=== PATIENT | female | born 1955 | race Caucasian/White ===

== ENCOUNTER 2017-09-11 21:44 | Observation (INO) | payer SELFPAY ==
[~2017-09-11] VITALS: Ht 177.8 cm; Wt 56.0 kg
[~2017-09-11 21:44] MED LIST: IOHEXOL 350 MG/ML 10 ML VIAL (for RAD DIAG) IVCONTRAST ONE; Z.0.NO CURRENT MEDS
[2017-09-11 22:03] VITALS: BP 128/94; PULSE 91; RESP 16; TEMP 97.6; O2SAT 98
[2017-09-11] MEDS ORDERED: KETOROLAC TROMETHAMINE 30 MG/ML (IVP) VIAL IV PUSH ONE (22:30)
[2017-09-11 23:51] LABS: BASOPHIL # 0.1 TH/MM3 (0-0.2); BASOPHIL % 0.6 % (0.0-2.0); EOSINOPHIL # 0.2 TH/MM3 (0-0.4); EOSINOPHIL % 1.4 % (0.0-4.0); HEMATOCRIT 27.5 % (35.0-46.0); HEMOGLOBIN 9.8 GM/DL (11.6-15.3); LYMPH % 28.9 % (9.0-44.0); LYMPHOCYTE # 3.7 TH/MM3 (1.0-4.8); MEAN CELL VOLUME 87.2 FL (80.0-100.0); MEAN CORPUSCULAR HEMOGLOBIN 31.1 PG (27.0-34.0); MEAN CORPUSCULAR HGB CONC 35.6 % (32.0-36.0); MEAN PLATELET VOLUME 6.9 FL (7.0-11.0); MONO % 6.3 % (0.0-8.0); MONOCYTE # 0.8 TH/MM3 (0-0.9); NEUT % 62.8 % (16.0-70.0); PLATELET COUNT 572 TH/MM3 (150-450); RED BLOOD COUNT 3.16 MIL/MM3 (4.00-5.30); RED CELL DISTRIBUTION WIDTH 16.5 % (11.6-17.2); WHITE BLOOD COUNT 12.7 TH/MM3 (4.0-11.0)
[2017-09-11 23:58] LABS: ALT (GPT) 11 U/L (10-53); AST (GOT) 15 U/L (15-37); BICARBONATE 16.4 MEQ/L (21.0-32.0); BLOOD UREA NITROGEN 34 MG/DL (7-18); CALCIUM 7.9 MG/DL (8.5-10.1); CHLORIDE 104 MEQ/L (98-107); CREATININE 1.26 MG/DL (0.50-1.00); GLOMERULAR FILTRATION RATE 43 ML/MIN (>89); GLUCOSE,RANDOM 79 MG/DL (74-106); SODIUM (NA) 135 MEQ/L (136-145)
[2017-09-12] VITALS (7 sets, daily range): BP systolic 126–182; BP diastolic 62–82; PULSE 85–100; RESP 16–24; TEMP 96.3–98.4; O2SAT 96–100
--- NOTE | 2017-09-12 00:04 | RADRPT ---
EXAM DATE/TIME: 09/11/2017 23:43 [facility] COMPARISON: No previous studies available for comparison. INDICATIONS : Cough and chest pain. MEDICAL HISTORY : None. SURGICAL HISTORY : Appendectomy. section. ENCOUNTER: Initial ACUITY: 2 weeks PAIN SCORE: 5/10 LOCATION: Left chest FINDINGS: PA and lateral views of the chest demonstrate subsegmental airspace disease on the right. Differentia l diagnosis includes bronchopneumonia. Left lung relatively clear. Heart size normal. CONCLUSION: 1. Subsegmental airspace disease in the right lung near the base. Differential diagnosis includes pne umonia and aspiration. Milan Trotter MD on September 12, 2017 at 0:01 Board Certified Radiologist. This report was verified electronically.
[2017-09-12 00:08] LABS: ALKALINE PHOSPHATASE 137 U/L (45-117); TOTAL BILIRUBIN ADULT 0.1 MG/DL (0.2-1.0); TOTAL PROTEIN 7.4 GM/DL (6.4-8.2); TROPONIN I LESS THAN 0.02 NG/ML (0.02-0.05)
[2017-09-12 00:36] LABS: BANDS 2 % (0-6); LYMPHOCYTES 28 % (9-44); METAMYELOCYTES 1 % (0-1); MONOCYTES 5 % (0-8); MYELOCYTES 4 % (0-0); NEUTROPHIL # MANUAL DIFF 8.4 TH/MM3 (1.8-7.7); POLYS (SEG NEUTROPHILS) 59 % (16-70); TOXIC GRANULATION 2+ (NORMAL)
[2017-09-12] MEDS ORDERED: SODIUM CHLOR 0.9% 1000 ML INJ 1,000 ML IV ONE ×2 (00:45)
[2017-09-12] MEDS ORDERED: LEVOFLOXACIN 750 MG PREMIX INJ 150 ML IV ONE (01:00)
[2017-09-12] MEDS ORDERED: IOHEXOL 350 MG/ML 10 ML VIAL (for RAD DIAG) IVCONTRAST ONE (01:28)
--- NOTE | 2017-09-12 01:48 | RADRPT ---
EXAM DATE/TIME: 09/12/2017 01:19 [facility] COMPARISON: No previous studies available for comparison. INDICATIONS : Abdominal pain. Evaluate pancreatitis. IV CONTRAST: 100 cc Omnipaque 350 (iohexol) IV ORAL CONTRAST: No oral contrast ingested. RADIATION DOSE: 6.64 CTDIvol (mGy) MEDICAL HISTORY : None SURGICAL HISTORY : Appendectomy. ENCOUNTER: Initial ACUITY: 1 day PAIN SCALE: 1/10 LOCATION: abdomen TECHNIQUE: Volumetric scanning of the abdomen and pelvis was performed. Using automated exposure control and ad justment of the mA and/or kV according to patient size, radiation dose was kept as low as reasonably achievable to obtain optimal diagnostic quality images. DICOM format image data is available electro nically for review and comparison. FINDINGS: There is a single airspace disease in lateral segment of the right middle lobe which has the appearan ce of most likely atelectasis. The liver is enlarged to 22 cm in length with mild fatty infiltration. Small calcified gallstone. Spl een unremarkable. Enlarged left adrenal gland, probably adenomatous. Right adrenal unremarkable. A si gnificant abnormality in the kidneys or pancreas. Specifically no evidence for pancreatitis. There is mural thickening of the distal left sigmoid colon with extensive diverticular disease. CONCLUSION: 1. No CT evidence for pancreatitis. Small calcified gallstone in the gallbladder. 2. Subsegmental atelectasis right middle lobe. 3. Mural thickening of the distal sigmoid colon, probably related to severe diverticulosis. 4. Hepatomegaly. Milan Trotter MD on September 12, 2017 at 1:37 Board Certified Radiologist. This report was verified electronically.
[2017-09-12] MEDS ORDERED: SODIUM CHLOR 0.9% 1000 ML INJ 1,000 ML IV SCH (02:42)
[2017-09-12] MEDS ORDERED: BISACODYL 10 MG SUPP RECTAL PRN (02:45)
[2017-09-12] MEDS ORDERED: SENNOSIDES 8.6 MG TAB PO PRN (02:45)
[2017-09-12] MEDS ORDERED: LORazepam 2 MG/ML VIAL IV PUSH PRN ×4 (02:45)
[2017-09-12] MEDS ORDERED: MAGNESIUM HYDROXIDE SUSP 30 ML CUP PO PRN (02:45)
[2017-09-12] MEDS ORDERED: HALOPERIDOL LACTATE 5 MG/ML AMP IM PRN (02:45)
[2017-09-12] MEDS ORDERED: METOCLOPRAMIDE HCL 10 MG/2 ML VIAL IV PUSH PRN (02:45)
[2017-09-12] MEDS ORDERED: MORPHINE SULFATE 2 MG/ML SYRINGE IV PUSH PRN (02:45)
[2017-09-12] MEDS ORDERED: LORazepam 1 MG TAB PO PRN (02:45)
[2017-09-12] MEDS ORDERED: PANTOPRAZOLE SODIUM 40 MG VIAL IV PUSH ONE (02:45)
[2017-09-12] MEDS ORDERED: FLUMAZENIL 0.5 MG/5 ML VIAL IV PUSH PRN (02:45)
[2017-09-12] MEDS ORDERED: LACTULOSE SYRUP 20 GM/30 ML CUP PO PRN (02:45)
[2017-09-12] MEDS ORDERED: SODIUM CHLORIDE 0.9% FLUSH 10 ML FLUSH IV FLUSH PRN (02:45)
[2017-09-12] MEDS ORDERED: ACETAMINOPHEN 325 MG TAB PO PRN (02:45)
[2017-09-12] MEDS ORDERED: LORazepam 2 MG TAB PO PRN (02:45)
[2017-09-12] MEDS ORDERED: RESP: ALBUTEROL 2.5 MG/IPRATROPIUM 0.5 MG NEB (PRN) NEB (03:00)
[2017-09-12] MEDS: THIAMINE HCL 100 MG TAB PO SCH ×2 (03:08→08:55)
--- NOTE | 2017-09-12 03:25 | HHI.HP ---
[facility] Service [facility] Primary Care Physician No Primary Care Physician Admission Diagnosis Diagnoses: (1) Pancreatitis Diagnosis: Principal (2) PNA (pneumonia) Diagnosis: Principal (3) PATT (acute kidney injury) Diagnosis: Principal (4) Alcohol abuse Diagnosis: Principal Travel History International Travel<30 Days: No Contact w/Intl Traveler <30 Da: No Traveled to Known Affected Are: No History of Present Illness This is a 61-year-old female with a PMH of Tobacco Abuse and Alcohol Use who presented to ER with complaints of dizziness in addition to abdominal pain, nausea and vomiting x1 wk. States symptoms have been getting progressively worse. Notes she usually drinks a 6 pack of beer every other day, but has been drinking less due to nausea/vomiting. Denies withdrawal. No fever, chills, no diarrhea. On arrival, BP 128/94, HR 91, O2 sat 98% on RA, Afebrile. WBC 12.7. Hemoglobin 9.8, previously 14.2 on 10/02/2008. Creatinine 1.26, previously 0.83 on 10/02/2008. Troponin negative. Lipase 1081. CXR with subsegmental airspace disease right lung near the base. CT Abdomen/Pelvis no evidence for pancreatitis, small calcified gallstone in the gallbladder, subsegmental atelectasis right middle lobe, diverticulosis. S/p Levaquin in ER. Review of Systems Except as stated in HPI: all other systems reviewed are Neg ROS: 14 point review of systems otherwise negative. Past Family Social History Past Medical History PMH: Tobacco Abuse and Alcohol Use Past Surgical History PAST SURGICAL HISTORY: Back Surgery Allergies: Coded Allergies: No Known Allergies (Verified Allergy, Mild, 10/28/07) Family History PAST FAMILY HISTORY: Reviewed. No h/o DM or CAD Social History PAST SOCIAL HISTORY: Positive for alcohol and tobacco. Negative for drugs. Physical Exam Vital Signs Vital Signs Date Time Temp Pulse Resp B/P (MAP) Pulse Ox O2 Delivery O2 Flow Rate FiO2 09/11/17 22:03 97.6 91 16 128/94 (105) 98 Physical Exam PE: GENERAL: Middle-aged white female in no acute distress. Smells of tobacco HEENT: PERRLA, EOMI. No scleral icterus or conjunctival pallor. No lid lag or facial droop. CARDIOVASCULAR: Regular rate and rhythm. No obvious murmurs to auscultation. No chest tenderness to palpation. RESPIRATORY: No obvious rhonchi or wheezing. Clear to auscultation. Breath sounds equal bilaterally. GASTROINTESTINAL: Abdomen soft, mild tenderness to palpation, nondistended. BS normal. MUSCULOSKELETAL: Extremities without clubbing, cyanosis, or edema. No obvious deformities. NEUROLOGICAL: Awake, alert and oriented x4. No focal neurologic deficits. Moving both upper and lower extremities spontaneously. Laboratory Laboratory Tests Test 09/11/17 22:00 White Blood Count 12.7 Red Blood Count 3.16 Hemoglobin 9.8 Hematocrit 27.5 Mean Corpuscular Volume 87.2 Mean Corpuscular Hemoglobin 31.1 Mean Corpuscular Hemoglobin Concent 35.6 Red Cell Distribution Width 16.5 Platelet Count 572 Mean Platelet Volume 6.9 Neutrophils (%) (Auto) 62.8 Lymphocytes (%) (Auto) 28.9 Monocytes (%) (Auto) 6.3 Eosinophils (%) (Auto) 1.4 Basophils (%) (Auto) 0.6 Neutrophils # (Auto) 8.0 Lymphocytes # (Auto) 3.7 Monocytes # (Auto) 0.8 Eosinophils # (Auto) 0.2 Basophils # (Auto) 0.1 CBC Comment AUTO DIFF Differential Total Cells Counted 100 Neutrophils % (Manual) 59 Band Neutrophils % 2 Lymphocytes % 28 Monocytes % 5 Eosinophils % 1 Neutrophils # (Manual) 8.4 Metamyelocytes 1 Myelocytes 4 Differential Comment FINAL DIFF MANUAL Toxic Granulation 2+ Platelet Estimate HIGH Platelet Morphology Comment NORMAL Blood Urea Nitrogen 34 Creatinine 1.26 Random Glucose 79 Total Protein 7.4 Albumin 2.0 Calcium Level 7.9 Alkaline Phosphatase 137 Aspartate Amino Transf (AST/SGOT) 15 Alanine Aminotransferase (ALT/SGPT) 11 Total Bilirubin 0.1 Sodium Level 135 Potassium Level 4.4 Chloride Level 104 Carbon Dioxide Level 16.4 Anion Gap 15 Estimat Glomerular Filtration Rate 43 Troponin I LESS THAN 0.02 Lipase 1081 Thyroid Stimulating Hormone 3rd Gen 2.230 Date/Time Source Procedure Growth Status 09/11/17 22:00 Nasal Aspirate Influenza Types A,B Antigen (CORDELIA) - Final NEGATIVE FOR FLU A AND B ANTIGEN.... Complete Result Diagram: 09/11/17219909/11/172199 Caprini VTE Risk Assessment Caprini VTE Risk Assessment: No/Low Risk (score <= 1) Caprini Risk Assessment Model Point Value = 1 Point Value = 2 Point Value = 3 Point Value = 5 Age 41-60 Minor surgery BMI > 25 kg/m2 Swollen legs Varicose veins or History of unexplained or recurrent spontaneous Oral contraceptives or hormone replacement Sepsis (< 1 month) Serious lung disease, including pneumonia (< 1 month) Abnormal pulmonary function Acute myocardial infarction Congestive heart failure (< 1 month) History of inflammatory bowel disease Medical patient at bed rest Age 61-74 Arthroscopic surgery Major open surgery (> 45 min) Laparoscopic surgery (> 45 min) Malignancy Confined to bed (> 72 hours) Immobilizing plaster cast Central venous access Age >= 75 History of VTE Family history of VTE Factor V Leiden Prothrombin [id number] Lupus anticoagulant Anticardiolipin antibodies Elevated serum homocysteine Heparin-induced thrombocytopenia Other congenital or acquired thrombophilia Stroke (< 1 month) Elective arthroplasty Hip, pelvis, or leg fracture Acute spinal cord injury (< 1 month) Prophylaxis Regimen Total Risk Factor Score Risk Level Prophylaxis Regimen 0-1 Low Early ambulation 2 Moderate Order ONE of the following: *Sequential Compression Device (SCD) *Heparin 5000 units SQ BID 3-4 Higher Order ONE of the following medications: *Heparin 5000 units SQ TID *Enoxaparin/Lovenox 40 mg SQ daily (WT < 150 kg, CrCl > 30 mL/min) *Enoxaparin/Lovenox 30 mg SQ daily (WT < 150 kg, CrCl > 10-29 mL/min) *Enoxaparin/Lovenox 30 mg SQ BID (WT < 150 kg, CrCl > 30 mL/min) AND/OR *Sequential Compression Device (SCD) 5 or more Highest Order ONE of the following medications: *Heparin 5000 units SQ TID (Preferred with Epidurals) *Enoxaparin/Lovenox 40 mg SQ daily (WT < 150 kg, CrCl > 30 mL/min) *Enoxaparin/Lovenox 30 mg SQ daily (WT < 150 kg, CrCl > 10-29 mL/min) *Enoxaparin/Lovenox 30 mg SQ BID (WT < 150 kg, CrCl > 30 mL/min) AND *Sequential Compression Device (SCD) Assessment and Plan Problem List: (1) Pancreatitis ICD Code: K85.90 - Acute pancreatitis without necrosis or infection, unspecified (2) PNA (pneumonia) ICD Code: J18.9 - Pneumonia, unspecified organism (3) PATT (acute kidney injury) ICD Code: N17.9 - Acute kidney failure, unspecified (4) Alcohol abuse ICD Code: F10.10 - Alcohol abuse, uncomplicated Assessment and Plan A/P: 1. Pancreatitis: acute onset abdominal pain, nausea/vomiting x1 wk. Lipase 1081, CT Abd/Pelvis w/ no evidence of pancreatitis, small calcified stone in gallbladder, images reviewed by me. Admit for Observation, NPO, IVF, diet as tolerated, analgesics/antiemetics, Protonix IV, repeat Lipase in am. 2. PNA: CXR w/ RLL infiltrate, CT Abd/Pelvis w/ subsegmental atelectasis RML, images reviewed by me, s/p Levaquin in ER, continue w/ IV Abx, DuoNeb prn. 3. PATT: Creatinine 1.26, previously 0.83 on 10/02/08, check U/a, IVF for hydration, repeat labs in am 4. Alcohol Use/Abuse: Drinks 6 beers every other day, unable to drink lately due to symptoms, CIWA, Seizure Precautions, MVT/Thiamine/Folate replacement. 5. DVT Prophylaxis: SCD/Teds 6. Social work for d/c planning as needed. 7. Case discussed w/ ER physician at length, labs/records/imaging reviewed by me. Blank Frias MD September 12, 2017 03:25
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
[2017-09-12 08:34] LABS: AUTOMATED NEUTROPHIL # 6.9 TH/MM3 (1.8-7.7); BASOPHIL # 0.1 TH/MM3 (0-0.2); BASOPHIL % 0.8 % (0.0-2.0); EOSINOPHIL # 0.1 TH/MM3 (0-0.4); EOSINOPHIL % 1.3 % (0.0-4.0); HEMATOCRIT 28.2 % (35.0-46.0); HEMOGLOBIN 9.5 GM/DL (11.6-15.3); LYMPHOCYTE # 2.5 TH/MM3 (1.0-4.8); MEAN CELL VOLUME 87.5 FL (80.0-100.0); MEAN CORPUSCULAR HEMOGLOBIN 29.6 PG (27.0-34.0); MEAN CORPUSCULAR HGB CONC 33.8 % (32.0-36.0); MEAN PLATELET VOLUME 6.6 FL (7.0-11.0); MONO % 6.9 % (0.0-8.0); MONOCYTE # 0.7 TH/MM3 (0-0.9); PLATELET COUNT 618 TH/MM3 (150-450); RED BLOOD COUNT 3.22 MIL/MM3 (4.00-5.30); RED CELL DISTRIBUTION WIDTH 16.8 % (11.6-17.2); WHITE BLOOD COUNT 10.3 TH/MM3 (4.0-11.0)
[2017-09-12 08:54] LABS: ALBUMIN 1.8 GM/DL (3.4-5.0); ALKALINE PHOSPHATASE 133 U/L (45-117); ALT (GPT) 11 U/L (10-53); AST (GOT) 14 U/L (15-37); BICARBONATE 16.7 MEQ/L (21.0-32.0); BLOOD UREA NITROGEN 31 MG/DL (7-18); CALCIUM 8.1 MG/DL (8.5-10.1); CHLORIDE 112 MEQ/L (98-107); CREATININE 1.19 MG/DL (0.50-1.00); GLOMERULAR FILTRATION RATE 46 ML/MIN (>89); GLUCOSE,RANDOM 91 MG/DL (74-106); SODIUM (NA) 140 MEQ/L (136-145); TOTAL BILIRUBIN ADULT 0.2 MG/DL (0.2-1.0); TOTAL PROTEIN 6.9 GM/DL (6.4-8.2)
[2017-09-12] MEDS: FOLIC ACID 1 MG TAB PO SCH (08:55)
[2017-09-12] MEDS: DOCUSATE SODIUM 50 MG/SENNA 8.6 MG TAB PO SCH ×2 (08:55→20:51)
[2017-09-12] MEDS: MULTIVITAMINS/MINERALS THERAPEUTIC TAB PO SCH (08:55)
[2017-09-12] MEDS: SODIUM CHLORIDE 0.9% FLUSH 10 ML FLUSH IV FLUSH SCH ×2 (08:55→20:52)
[2017-09-12 09:55] LABS: BANDS 2 % (0-6); LYMPHOCYTES 19 % (9-44); METAMYELOCYTES 2 % (0-1); MONOCYTES 7 % (0-8); MYELOCYTES 3 % (0-0); NEUTROPHIL # MANUAL DIFF 7.3 TH/MM3 (1.8-7.7); POLYS (SEG NEUTROPHILS) 64 % (16-70)
[2017-09-12 09:56] LABS: TOXIC GRANULATION 1+ (NORMAL)
[2017-09-12 10:23] LABS: URINE COLOR STRAW (YELLW/STRAW)
[2017-09-12 10:24] LABS: BILIRUBIN, URINE NEGATIVE (NEG); BLOOD, URINE MOD (NEG); GLUCOSE,URINE NEG (NEG); KETONE, URINE NEG (NEG); NITRITE,URINE NEG (NEG); URINE LEUKOCYTE ESTERASE NEGATIVE (NEG)
[2017-09-12 10:25] LABS: SQUAMOUS EPITHELIAL CELL URINE <1 /hpf (0-5)
--- NOTE | 2017-09-12 13:46 | EKG ---
Date Performed: 09/11/2017 Time Performed: 21:57:32 PTAGE: 61 years EKG: Sinus rhythm ARM LEADS REVERSED ATYPICAL ECG PREVIOUS TRACING : 10/02/2008 14.43 Since the previous tracing, no significant change noted DOCTOR: Manjeet Michael Interpretating Date/Time 09/12/2017 13:43:32
[2017-09-12] MEDS ORDERED: cloNIDine HCL 0.1 MG TAB PO ONE (20:00)
[2017-09-12] MEDS ORDERED: MORPHINE SULFATE 4 MG/ML INJ IV PRN (20:45)
[2017-09-12] MEDS: cefTRIAXone INJ 1,000 MG in SODIUM CHLORIDE 0.9% INJ 100 ML IV SCH (20:51)
[2017-09-12] MEDS: AZITHROMYCIN INJ 500 MG in SODIUM CHLOR 0.9% 250 ML INJ 250 ML IV SCH (22:38)
[2017-09-12] MEDS ORDERED: cefTRIAXone INJ 1,000 MG in SODIUM CHLORIDE 0.9% INJ 100 ML IV SCH (23:00)
[2017-09-13 03:44] VITALS: BP 154/70; PULSE 84; RESP 17; TEMP 98; O2SAT 96
[2017-09-13 07:33] VITALS: BP 153/76; PULSE 82; RESP 20; TEMP 96.3; O2SAT 98
[2017-09-13] MEDS: DOCUSATE SODIUM 50 MG/SENNA 8.6 MG TAB PO SCH ×2 (09:00→21:00)
[2017-09-13] MEDS: FOLIC ACID 1 MG TAB PO SCH (09:07)
[2017-09-13] MEDS: SODIUM CHLORIDE 0.9% FLUSH 10 ML FLUSH IV FLUSH SCH ×2 (09:07→21:35)
[2017-09-13] MEDS: THIAMINE HCL 100 MG TAB PO SCH (09:07)
[2017-09-13] MEDS: MULTIVITAMINS/MINERALS THERAPEUTIC TAB PO SCH (09:07)
[2017-09-13 09:24] LABS: ALBUMIN 1.9 GM/DL (3.4-5.0); AST (GOT) 11 U/L (15-37); BLOOD UREA NITROGEN 26 MG/DL (7-18); CALCIUM 8.5 MG/DL (8.5-10.1); CHLORIDE 112 MEQ/L (98-107); CREATININE 1.06 MG/DL (0.50-1.00); GLOMERULAR FILTRATION RATE 53 ML/MIN (>89); GLUCOSE,RANDOM 93 MG/DL (74-106); SODIUM (NA) 140 MEQ/L (136-145)
[2017-09-13 09:25] LABS: ALT (GPT) 11 U/L (10-53)
[2017-09-13 09:27] LABS: ALKALINE PHOSPHATASE 131 U/L (45-117); TOTAL BILIRUBIN ADULT 0.2 MG/DL (0.2-1.0); TOTAL PROTEIN 6.8 GM/DL (6.4-8.2)
[2017-09-13 09:34] LABS: HEMATOCRIT 29.5 % (35.0-46.0); HEMOGLOBIN 9.9 GM/DL (11.6-15.3); MEAN CELL VOLUME 90.1 FL (80.0-100.0); MEAN CORPUSCULAR HEMOGLOBIN 30.2 PG (27.0-34.0); MEAN CORPUSCULAR HGB CONC 33.5 % (32.0-36.0); MEAN PLATELET VOLUME 6.7 FL (7.0-11.0); PLATELET COUNT 637 TH/MM3 (150-450); RED BLOOD COUNT 3.28 MIL/MM3 (4.00-5.30); RED CELL DISTRIBUTION WIDTH 16.8 % (11.6-17.2)
[2017-09-13] MEDS ORDERED: ACETAMINOPHEN/HYDROcodone 325 MG/7.5 MG TAB PO ONE (10:30)
[2017-09-13 11:05] LABS: BANDS 2 % (0-6); LYMPHOCYTES 20 % (9-44); MONOCYTES 10 % (0-8); MYELOCYTES 3 % (0-0); NEUTROPHIL # MANUAL DIFF 5.6 TH/MM3 (1.8-7.7); POLYS (SEG NEUTROPHILS) 65 % (16-70)
[2017-09-13 11:06] LABS: TOXIC GRANULATION 1+ (NORMAL)
[2017-09-13 11:12] VITALS: BP 151/72; PULSE 76; RESP 20; TEMP 97.1; O2SAT 100
[2017-09-13] MEDS ORDERED: LEVO750T3 PO (11:30)
[2017-09-13] MEDS ORDERED: LACTTAB8 PO (11:30)
[2017-09-13] MEDS ORDERED: NORC5TAB PO (11:30)
--- NOTE | 2017-09-13 14:36 | HHI.PR ---
Subjective Remarks Pain is significant this morning, not able to discharge without pain treatments yet. Respiratory status has improved. Pancreatic enzymes are improving. She still has significant pleuritic chest pain with inspiration. Objective Vital Signs Date Time Temp Pulse Resp B/P (MAP) Pulse Ox O2 Delivery O2 Flow Rate FiO2 09/13/17 12:13 18 09/13/17 11:12 97.1 76 20 151/72 (98) 100 09/13/17 07:33 96.3 82 20 153/76 (101) 98 09/13/17 03:44 98.0 84 17 154/70 (98) 96 09/12/17 23:18 98.2 86 17 131/62 (85) 97 09/12/17 19:47 98.4 96 18 180/82 (114) 100 09/12/17 15:23 98.2 85 16 178/79 (112) 97 I/O 09/12/17 09/12/17 09/12/17 09/13/17 09/13/17 09/13/17 07:00 15:00 23:00 07:00 15:00 23:00 Intake Total 480 ml 1080 ml Output Total 450 ml Balance -450 ml 480 ml 1080 ml Intake Oral 480 ml 1080 ml Output Urine Total 450 ml # Voids 2 # Bowel Movements 3 Result Diagram: 09/13/17 0652 09/13/17 0652 Objective Remarks GENERAL: NAD, A&Ox3 HEAD: Normocephalic. NECK: Supple, trachea midline. No lymphadenopathy. EYES: No scleral icterus. No injection or drainage. CARDIOVASCULAR: Regular rate and rhythm without murmurs, gallops, or rubs. RESPIRATORY: Breath sounds equal bilaterally. No accessory muscle use. Crackles bilaterally. GASTROINTESTINAL: Abdomen soft, non-tender, nondistended. MUSCULOSKELETAL: No cyanosis, or edema. SKIN: Warm and dry. NEURO: No focal neurological deficitis. A/P Problem List: (1) PNA (pneumonia) ICD Code: J18.9 - Pneumonia, unspecified organism (2) Pancreatitis ICD Code: K85.90 - Acute pancreatitis without necrosis or infection, unspecified (3) PATT (acute kidney injury) ICD Code: N17.9 - Acute kidney failure, unspecified Assessment and Plan 61-year-old female admitted secondary to pneumonia and pancreatitis Acute pancreatitis Improved May be related to pneumonia Continue to monitor lipase Right lower lobe pneumonia Continue antibiotics Continue to follow for clinical improvements Oxygen as needed Pain treatments as needed Acute kidney injury Resolved DVT prophylaxis SCDs Delonte Gutierrez MD September 13, 2017 14:36
--- NOTE | 2017-09-13 15:38 | HHI.PR ---
Subjective Remarks F/u pancreatitis. NOT SEEN Objective Vitals Vital Signs Date Time Temp Pulse Resp B/P (MAP) Pulse Ox O2 Delivery O2 Flow Rate FiO2 09/13/17 12:13 18 09/13/17 11:12 97.1 76 20 151/72 (98) 100 09/13/17 07:33 96.3 82 20 153/76 (101) 98 09/13/17 03:44 98.0 84 17 154/70 (98) 96 09/12/17 23:18 98.2 86 17 131/62 (85) 97 09/12/17 19:47 98.4 96 18 180/82 (114) 100 I/O 09/12/17 09/12/17 09/12/17 09/13/17 09/13/17 09/13/17 07:00 15:00 23:00 07:00 15:00 23:00 Intake Total 480 ml 2040 ml Output Total 450 ml Balance -450 ml 480 ml 2040 ml Intake Oral 480 ml 2040 ml Output Urine Total 450 ml # Voids 2 2 # Bowel Movements 3 Result Diagram: 09/13/17 0652 09/13/17 0652 Imaging Last Impressions Abdomen/Pelvis CT 09/12/17 0000 Signed Impressions: Service Date/Time: Tuesday, September 12, 2017 01:19 - CONCLUSION: 1. No CT evidence for pancreatitis. Small calcified gallstone in the gallbladder. 2. Subsegmental atelectasis right middle lobe. 3. Mural thickening of the distal sigmoid colon, probably related to severe diverticulosis. 4. Hepatomegaly. Milan Trotter MD Chest X-Ray 09/11/17 0000 Signed Impressions: Service Date/Time: Monday, September 11, 2017 23:43 - CONCLUSION: 1. Subsegmental airspace disease in the right lung near the base. Differential diagnosis includes pneumonia and aspiration. Milan Trotter MD Objective Remarks GENERAL: NAD, A&Ox3 HEAD: Normocephalic. NECK: Supple, trachea midline. No lymphadenopathy. EYES: No scleral icterus. No injection or drainage. CARDIOVASCULAR: Regular rate and rhythm without murmurs, gallops, or rubs. RESPIRATORY: Breath sounds equal bilaterally. No accessory muscle use. Crackles bilaterally. GASTROINTESTINAL: Abdomen soft, non-tender, nondistended. MUSCULOSKELETAL: No cyanosis, or edema. SKIN: Warm and dry. NEURO: No focal neurological deficits. Procedures None A/P Problem List: (1) Pancreatitis ICD Code: K85.90 - Acute pancreatitis without necrosis or infection, unspecified (2) PNA (pneumonia) ICD Code: J18.9 - Pneumonia, unspecified organism (3) PATT (acute kidney injury) ICD Code: N17.9 - Acute kidney failure, unspecified (4) Alcohol abuse ICD Code: F10.10 - Alcohol abuse, uncomplicated Assessment and Plan 61-year-old female admitted secondary to pneumonia and pancreatitis Acute pancreatitis Improved May be related to pneumonia Continue to monitor lipase Right lower lobe pneumonia with sepsis Continue antibiotics switch to po, CXR in 6 weeks Continue to follow for clinical improvements Oxygen as needed Pain treatments as needed Acute kidney injury Resolved DVT prophylaxis SCDs Andi Walker MD September 13, 2017 15:37
[2017-09-13 15:54] VITALS: BP 144/80; PULSE 78; RESP 20; TEMP 96.5; O2SAT 100
[2017-09-13 21:10] VITALS: BP 150/72; PULSE 78; RESP 18; TEMP 97.8; O2SAT 98
[2017-09-13] MEDS: cefTRIAXone INJ 1,000 MG in SODIUM CHLORIDE 0.9% INJ 100 ML IV SCH (21:35)
[2017-09-13] MEDS: ACETAMINOPHEN/HYDROcodone 325 MG/5 MG TAB PO PRN (21:42)
[2017-09-13] MEDS: AZITHROMYCIN INJ 500 MG in SODIUM CHLOR 0.9% 250 ML INJ 250 ML IV SCH (22:35)
[2017-09-14 01:28] VITALS: BP 159/77; PULSE 73; RESP 18; TEMP 97.7; O2SAT 98
[2017-09-14 04:23] VITALS: BP 167/76; PULSE 82; RESP 18; TEMP 97.8; O2SAT 99
[2017-09-14 06:58] LABS: AUTOMATED NEUTROPHIL # 3.3 TH/MM3 (1.8-7.7); BASOPHIL # 0.1 TH/MM3 (0-0.2); BASOPHIL % 1.2 % (0.0-2.0); EOSINOPHIL # 0.1 TH/MM3 (0-0.4); EOSINOPHIL % 1.8 % (0.0-4.0); HEMATOCRIT 29.4 % (35.0-46.0); HEMOGLOBIN 9.8 GM/DL (11.6-15.3); LYMPH % 41.9 % (9.0-44.0); LYMPHOCYTE # 3.1 TH/MM3 (1.0-4.8); MEAN CELL VOLUME 87.5 FL (80.0-100.0); MEAN CORPUSCULAR HGB CONC 33.1 % (32.0-36.0); MEAN PLATELET VOLUME 6.8 FL (7.0-11.0); MONO % 9.4 % (0.0-8.0); MONOCYTE # 0.7 TH/MM3 (0-0.9); NEUT % 45.7 % (16.0-70.0); PLATELET COUNT 718 TH/MM3 (150-450); RED BLOOD COUNT 3.37 MIL/MM3 (4.00-5.30); RED CELL DISTRIBUTION WIDTH 16.7 % (11.6-17.2); WHITE BLOOD COUNT 7.3 TH/MM3 (4.0-11.0)
[2017-09-14 07:05] VITALS: BP 175/84; PULSE 86; RESP 16; TEMP 97.7; O2SAT 98
[2017-09-14 07:12] LABS: BICARBONATE 22.7 MEQ/L (21.0-32.0); CALCIUM 8.5 MG/DL (8.5-10.1); CREATININE 1.1 MG/DL (0.50-1.00); MAGNESIUM 1.7 MG/DL (1.5-2.5)
[2017-09-14] MEDS: THIAMINE HCL 100 MG TAB PO SCH (08:15)
[2017-09-14] MEDS: MULTIVITAMINS/MINERALS THERAPEUTIC TAB PO SCH (08:15)
[2017-09-14] MEDS: SODIUM CHLORIDE 0.9% FLUSH 10 ML FLUSH IV FLUSH SCH (08:16)
[2017-09-14] MEDS: FOLIC ACID 1 MG TAB PO SCH (08:16)
[2017-09-14] MEDS: DOCUSATE SODIUM 50 MG/SENNA 8.6 MG TAB PO SCH (08:16)
[2017-09-14] MEDS: ACETAMINOPHEN/HYDROcodone 325 MG/5 MG TAB PO PRN (08:21)
[2017-09-14 08:34] LABS: BANDS 1 % (0-6); LYMPHOCYTES 46 % (9-44); METAMYELOCYTES 1 % (0-1); MONOCYTES 9 % (0-8); MYELOCYTES 2 % (0-0); POLYS (SEG NEUTROPHILS) 37 % (16-70)
[2017-09-14] MEDS ORDERED: AZITHROMYCIN 250 MG TAB PO SCH (09:00)
[2017-09-14] MEDS ORDERED: cloNIDine HCL 0.1 MG TAB PO PRN (09:00)
[2017-09-14] MEDS ORDERED: CEFUROXIME AXETIL 500 MG TAB PO SCH (09:00)
[2017-09-14] MEDS ORDERED: SODIUM CHLOR 0.45% 1000 ML INJ 1,000 ML IV SCH (09:00)
--- NOTE | 2017-09-14 09:00 | HHI.PR ---
Subjective Remarks Follow-up pancreatitis. Tolerating diet. Complains of pleuritic bilateral chest pain worse with cough. She is also feeling depressed not suicidal because of her home situation. She wants to stay another day if possible. Objective Vitals Vital Signs Date Time Temp Pulse Resp B/P (MAP) Pulse Ox O2 Delivery O2 Flow Rate FiO2 09/14/17 07:05 97.7 86 16 175/84 (114) 98 09/14/17 04:23 97.8 82 18 167/76 (106) 99 09/14/17 01:28 97.7 73 18 159/77 (104) 98 09/13/17 21:10 97.8 78 18 150/72 (98) 98 09/13/17 15:54 96.5 78 20 144/80 (101) 100 09/13/17 12:13 18 09/13/17 11:12 97.1 76 20 151/72 (98) 100 I/O 09/13/17 09/13/17 09/13/17 09/14/17 09/14/17 09/14/17 07:00 15:00 23:00 07:00 15:00 23:00 Intake Total 2040 ml 100 ml 250 ml Balance 2040 ml 100 ml 250 ml Intake Oral 2040 ml IV Total 100 ml 250 ml # Voids 2 Result Diagram: 09/14/17 0551 09/14/17 0551 Imaging Last Impressions Abdomen/Pelvis CT 09/12/17 0000 Signed Impressions: Service Date/Time: Tuesday, September 12, 2017 01:19 - CONCLUSION: 1. No CT evidence for pancreatitis. Small calcified gallstone in the gallbladder. 2. Subsegmental atelectasis right middle lobe. 3. Mural thickening of the distal sigmoid colon, probably related to severe diverticulosis. 4. Hepatomegaly. Milan Trotter MD Chest X-Ray 09/11/17 0000 Signed Impressions: Service Date/Time: Monday, September 11, 2017 23:43 - CONCLUSION: 1. Subsegmental airspace disease in the right lung near the base. Differential diagnosis includes pneumonia and aspiration. Milan Trotter MD Objective Remarks GENERAL: NAD, A&Ox3 CARDIOVASCULAR: Regular rate and rhythm without murmurs, gallops, or rubs. RESPIRATORY: Breath sounds equal bilaterally. No accessory muscle use. Crackles bilaterally. GASTROINTESTINAL: Abdomen soft, non-tender, nondistended. MUSCULOSKELETAL: No cyanosis, or edema. SKIN: Warm and dry. NEURO: No focal neurological deficits. Procedures None A/P Problem List: (1) Pancreatitis ICD Code: K85.90 - Acute pancreatitis without necrosis or infection, unspecified (2) PNA (pneumonia) ICD Code: J18.9 - Pneumonia, unspecified organism (3) PATT (acute kidney injury) ICD Code: N17.9 - Acute kidney failure, unspecified (4) Alcohol abuse ICD Code: F10.10 - Alcohol abuse, uncomplicated Assessment and Plan 61-year-old female admitted secondary to pneumonia and pancreatitis Acute alcoholic pancreatitis Improved Alcohol cessation. [facility] protocol. Case management for referral to substance abuse treatment center Right lower lobe pneumonia with sepsis Continue antibiotics switch to po, CXR in 6 weeks Continue to follow for clinical improvements Oxygen as needed Pain treatments as needed counselled regarding narcotics Acute kidney injury Improving but creatinine slightly worse today. Nonoliguric. Gentle IV hydration for 1 L Elevated BP which could be secondary to alcohol. Monitor clonidine as needed Depression. No suicidal ideations. Consult psychiatry DVT prophylaxis SCDs Discharge Planning Possible discharge today or tomorrow Andi Walker MD September 14, 2017 09:00
[2017-09-14] MEDS ORDERED: LEVO750T3 PO ×2 (09:10→09:11)
[2017-09-14] MEDS ORDERED: THIA100 PO (09:10)
--- NOTE | 2017-09-14 09:11 | HHI.DCPOC ---
Discharge Care Plan Diagnosis: (1) PATT (acute kidney injury) (2) PNA (pneumonia) (3) Pancreatitis Your Health Problems Are: Difficulty with ADL Exercise Tolerance Goals to Promote Your Health * To prevent worsening of your condition and complications * To maintain your health at the optimal level Directions to Meet Your Goals Take your medications as prescribed Follow your dietary instruction Follow activity as directed Keep your appointments as scheduled Take your immunizations and boosters as scheduled If your symptoms worsen call your PCP, if no PCP go to Urgent Care Center or Emergency Room Smoking is Dangerous to Your Health. Avoid second hand smoke Call the 24-hour hour crisis hotline for domestic abuse at Andi Walker MD September 14, 2017 09:11
[2017-09-14] MEDS ORDERED: LEVOFLOXACIN 750 MG TAB PO SCH (09:15)
[2017-09-14 10:51] VITALS: BP 148/70; PULSE 82; RESP 20; TEMP 97.6; O2SAT 98
--- NOTE | 2017-09-14 11:11 | PD.PSY.CON ---
Provisional Diagnosis Admission Date September 12, 2017 at 04:19 [place] I. Adjustment disorder with depressed mood vs major depressive disorder, moderate, alcohol use disorder [place] II. Deferred [place] III. Acute pancreatitis [place] IV. Unemployed, homeless, poor social and family support [place] V. 56 History of Present Illness Service Psychiatry Consult Requested By ED team Reason for Consult depression Primary Care Physician No Primary Care Physician HPI The patient is a 61-year-old woman, domiciled with a friend linda pettit , unemployed, single, with psychiatric history of depression and anxiety, but no previous psychiatric hospitalizations, suicide attempts, alcohol and cannabis use disorder, no significant medical history, who is now under medical observation due to acute pancreatitis and for right lower lobe pneumonia. The patient was consulted to psychiatry due to symptoms of depression. On psychiatric evaluation today the patient is calm, cooperative. She says that she feels much better today. Denies pain, denies distress. She reports symptoms of depression for about 3 months since her ex- . She says that even though they were , he was a good support for her. Since he , she has been living from house to house, with multiple friends, homeless, struggling for her basic needs. Patient reports that she has been feeling more and more depressed day by day, with increased anhedonia, hopelessness, helplessness, weight loss, poor appetite, poor sleep at night and generalized pessimism. She denies suicidal enemas ideation, she denies visual and auditory hallucinations. The patient says that she is motivated to get better and continue with her life. Says that she understand that she may need antidepressants. She declined voluntary psychiatric hospitalization. Patient also reports that she has been struggling with alcoholism, even though she has been decreasing her alcohol intake in the last 2 weeks. He denies previous symptoms of withdrawal. At this moment the patient is oriented 3, no attention deficit, no filtration of consciousness, no gross cognitive impairment present. During the evaluation the patient presents tearful, but she seems to be sincerely insightful. Patient is willing to take Remeron 15 mg at bedtime for her depression, insomnia and weight loss. He reports almost daily use of alcohol, denies withdrawal symptoms, denies DVT, and also daily use of marijuana, denies the use of other illegal drugs. I Review of Systems Constitutional: DENIES: Diaphoretic episodes, Fatigue, Fever, Weight gain, Weight loss, Chills, Dizziness, Change in appetite, Night Sweats Endocrine: DENIES: Abnorml menstrual pattern, Heat/cold intolerance, Polydipsia , Polyuria, Polyphagia Eyes: DENIES: Blurred vision, Diplopia, Eye inflammation, Eye pain, Vision loss , Photosensitivity, Double Vision Ears, nose, mouth, throat: DENIES: Tinnitus, Hearing loss, Vertigo, Nasal discharge, Oral lesions, Throat pain, Hoarseness, Ear Pain, Running Nose, Epistaxis, Sinus Pain, Toothache, Odynophagia Respiratory: DENIES: Apneas, Cough, Snoring, Wheezing, Hemoptysis, Sputum production, Shortness of breath Cardiovascular: DENIES: Chest pain, Palpitations, Syncope, Dyspnea on Exertion , PND, Lower Extremity Edema, Orthopnea, Claudication Gastrointestinal: DENIES: Abdominal pain, Black stools, Bloody stools, Constipation, Diarrhea, Nausea, Vomiting, Difficulty Swallowing, Anorexia Genitourinary: DENIES: Abnormal vaginal bleeding, Dysmenorrhea, Dyspareunia, Sexual dysfunction, Urinary frequency, Urinary incontinence, Urgency, Hematuria , Dysuria, Nocturia, Vaginal discharge Musculoskeletal: DENIES: Joint pain, Muscle aches, Stiffness, Joint Swelling, Back pain, Neck pain Integumentary: DENIES: Abnormal pigmentation, Pruritus, Rash, Nail changes, Breast masses, Breast skin changes, Nipple discharge Hematologic/lymphatic: DENIES: Bruising, Lymphadenopathy Immunologic/allergic: DENIES: Eczema, Urticaria Neurologic: DENIES: Abnormal gait, Headache, Localized weakness, Paresthesias, Seizures, Speech Problems, Tremor, Poor Balance Psychiatric: COMPLAINS OF: Depression, DENIES: Anxiety, Confusion, Mood changes , Hallucinations, Agitation, Suicidal Ideation, Homicidal Ideation, Delusions Past Family Social History Coded Allergies: No Known Allergies (Verified Allergy, Mild, 10/28/07) Active Scripts Levofloxacin (Levofloxacin) 750 Mg Tablet, 750 MG PO DAILY for Infection, #4 TAB 0 Refills Prov:Andi Walker MD 09/14/17 Thiamine HCl (Gnp Vitamin B-1) 100 Mg Tab, 100 MG PO DAILY for Alcohol Detox, # 30 TAB Prov:Andi Walker MD 09/14/17 Hydrocodone-Acetaminophen ([place]) 5 Mg-325 Mg Tab, 1 TAB PO Q6H Y for PAIN, #20 TAB 0 Refills Prov:Delonte Gutierrez MD 09/13/17 Lactobacillus Acidophilus (Lactobacillus Acidophilus) 1 Billion Cell Tab, 1 TAB PO TIDAC for Nutritional Supplement, #30 TAB 0 Refills Prov:Delonte Gutierrez MD 09/13/17 Discontinued Reported Medications Miscellaneous (No Current Meds) Misc, 0 Refills 10/02/08 Discontinued Scripts Levofloxacin (Levofloxacin) 750 Mg Tablet, 750 MG PO DAILY for Infection, #7 TAB 0 Refills Prov:Delonte Gutierrez MD 09/13/17 Current Medications Medications (Trade) Dose Ordered Sig/[place] Route Start Time Stop Time Status Last Admin (Folate) 1 mg DAILY PO 09/12/17 09:00 09/17/17 08:59 09/14/17 08:16 (Vitamin B1) 100 mg DAILY PO 09/12/17 02:45 09/14/17 08:15 (Romazicon Inj) 0.2 mg Q1M PRN IV PUSH 09/12/17 02:45 (Ativan) 1 mg Q4H PRN PO 09/12/17 02:45 (Ativan Inj) 1 mg Q4H PRN IV PUSH 09/12/17 02:45 (Ativan) 2 mg Q2H PRN PO 09/12/17 02:45 (Ativan Inj) 2 mg Q2H PRN IV PUSH 09/12/17 02:45 (Ativan Inj) 2 mg Q1H PRN IV PUSH 09/12/17 02:45 (Ativan Inj) 2 mg Q15M PRN IV PUSH 09/12/17 02:45 (Haldol Inj) 2 mg Q15M PRN IM 09/12/17 02:45 (NS Flush) 2 ml UNSCH PRN IV FLUSH 09/12/17 02:45 (NS Flush) 2 ml BID IV FLUSH 09/12/17 09:00 09/14/17 08:16 (Reglan Inj) 5 mg Q6H PRN IV PUSH 09/12/17 02:45 (Tylenol) 650 mg Q6H PRN PO 09/12/17 02:45 (Cristal-Colace) 1 tab BID PO 09/12/17 09:00 09/12/17 08:55 (Milk Of Magnesia Liq) 30 ml Q12H PRN PO 09/12/17 02:45 (Senokot) 17.2 mg Q12H PRN PO 09/12/17 02:45 (Dulcolax Supp) 10 mg DAILY PRN RECTAL 09/12/17 02:45 (Lactulose Liq) 30 ml DAILY PRN PO 09/12/17 02:45 (Duoneb Neb) 1 ampule Q4HR NEB PRN NEB 09/12/17 03:00 ([place] 5-325 Mg) 1 tab Q4H PRN PO 09/13/17 10:30 09/14/17 08:21 Sodium Chloride 1,000 ml @ 42 mls/hr [id number] IV 09/14/17 09:00 09/15/17 08:48 09/14/17 09:57 (Catapres) 0.1 mg Q6H PRN PO 09/14/17 09:00 (Levaquin) 750 mg DAILY PO 09/14/17 09:15 09/19/17 09:14 09/14/17 09:56 (Theragran M Tab) 1 tab DAILY@1100 PO 09/15/17 11:00 09/17/17 10:59 Family Psych History She denies family psychiatric history Social History Patient was born and raised in [place], she lives in [place] here with a friend , she has 2 kids, unemployed, her highest level of education is 11th grade. Patient's Strengths (min. 2) Verbal communication Physical Exam Patient does not present any tremors, no EPS, no stiffness, psychomotor retardation or agitation, no gait disturbance Vital Signs Vital Signs Date Time Temp Pulse Resp B/P (MAP) Pulse Ox O2 Delivery O2 Flow Rate FiO2 09/14/17 10:51 97.6 82 20 148/70 (96) 98 09/12/17 04:31 Room Air I/O 09/14/17 09/14/17 09/15/17 08:00 16:00 00:00 Intake Total 250 ml Balance 250 ml Lab Results Test 09/14/17 05:51 White Blood Count 7.3 TH/MM3 Red Blood Count 3.37 MIL/MM3 Hemoglobin 9.8 GM/DL Hematocrit 29.4 % Mean Corpuscular Volume 87.5 FL Mean Corpuscular Hemoglobin 29.0 PG Mean Corpuscular Hemoglobin Concent 33.1 % Red Cell Distribution Width 16.7 % Platelet Count 718 TH/MM3 Mean Platelet Volume 6.8 FL Neutrophils (%) (Auto) 45.7 % Lymphocytes (%) (Auto) 41.9 % Monocytes (%) (Auto) 9.4 % Eosinophils (%) (Auto) 1.8 % Basophils (%) (Auto) 1.2 % Neutrophils # (Auto) 3.3 TH/MM3 Lymphocytes # (Auto) 3.1 TH/MM3 Monocytes # (Auto) 0.7 TH/MM3 Eosinophils # (Auto) 0.1 TH/MM3 Basophils # (Auto) 0.1 TH/MM3 CBC Comment AUTO DIFF Differential Total Cells Counted 100 Neutrophils % (Manual) 37 % Band Neutrophils % 1 % Lymphocytes % 46 % Monocytes % 9 % Eosinophils % 4 % Neutrophils # (Manual) 3.0 TH/MM3 Metamyelocytes 1 % Myelocytes 2 % Differential Comment FINAL DIFF MANUAL Platelet Estimate HIGH Platelet Morphology Comment NORMAL Blood Urea Nitrogen 24 MG/DL Creatinine 1.10 MG/DL Random Glucose 89 MG/DL Calcium Level 8.5 MG/DL Magnesium Level 1.7 MG/DL Sodium Level 141 MEQ/L Potassium Level 4.4 MEQ/L Chloride Level 109 MEQ/L Carbon Dioxide Level 22.7 MEQ/L Anion Gap 9 MEQ/L Estimat Glomerular Filtration Rate 51 ML/MIN Total Creatine Kinase 20 U/L Date/Time Source Procedure Growth Status 09/11/17 22:00 Nasal Aspirate Influenza Types A,B Antigen (CORDELIA) - Final NEGATIVE FOR FLU A AND B ANTIGEN.... Complete Mental Status Examination Appearance: Appropriate Consciousness: Alert Orientation: x4 Motor Activity: Normal gait Speech: Unremarkable Language: Adequate Fund of Knowledge: Adequate Attention and Concentration: Adequate Memory: Unremarkable Mood: Appropriate Affect: Appropriate, Sad Thought Process & Associations: Intact Thought Content: Appropriate Hallucination Type: None Delusion Type: None Suicidal Ideation: No Suicidal Plan: No Suicidal Intention: No Homicidal Ideation: No Homicidal Plan: No Homicidal Intention: No Insight: Adequate Judgment: Adequate Assessment & Plan Problem List: (1) Adjustment disorder with depressed mood ICD Codes: F43.21 - Adjustment disorder with depressed mood Assessment & Plan: Psychiatric evaluation today the patient presents with symptomatology of mild to moderate depression in the context of economical/ social/emotional and interpersonal stressors. The patient reports that she has been feeling everyday more hopeless, helpless, abandonment, with generalized pessimism, poor sleep and weight loss seeing her ex- 3 months ago. She also reports that she has been basically homeless, living from house to house of friends, unemployed. She denies suicidal enemas ideation, she denies visual and auditory hallucinations. The patient is to be future oriented, she wants to get better, she wants treatment, but she refused voluntary admission in psychiatry. She has a psychiatric history of depression, anxiety, and alcohol use disorder. Patient is not withdrawing at this moment. I will start Remeron 15 mg at bedtime for depression, insomnia and also for weight loss. Continue CIWA. Extensive support, motivational psych education provided. No psychiatric hospitalization indicated. Assessment & Plan Estimated LOS: days Deuce Douglas MD September 14, 2017 11:11
[2017-09-14] MEDS ORDERED: MIRTA15 PO (14:12)
[2017-09-14 14:36] VITALS: BP 157/77; PULSE 84; RESP 16; TEMP 98.3; O2SAT 99
[2017-09-14] MEDS ORDERED: MIRTAZAPINE 15 MG TAB PO SCH (21:00)
[2017-09-15] MEDS ORDERED: MULTIVITAMINS/MINERALS THERAPEUTIC TAB PO SCH (11:00)
== END 2017-09-14 21:33 | disposition home or self-care (01) ==
LOC: NEPE 21:44 → NEDA 09-12 04:19 → NEPFCDU 09-12 06:05
PROVIDERS: ADMIT Internal Medicine; ATTEND Internal Medicine
DX: K85.20 Alcohol induced acute pancreatitis without necrosis or infection (principal); A41.9 Sepsis, unspecified organism; J18.1 Lobar pneumonia, unspecified organism; N17.9 Acute kidney failure, unspecified; F43.21 Adjustment disorder with depressed mood; G47.00 Insomnia, unspecified; F10.20 Alcohol dependence, uncomplicated; F17.210 Nicotine dependence, cigarettes, uncomplicated; Z59.0 Homelessness
CPT/HCPCS: 71046; 74177; 80048; 80053; 81001; 82550; 82948; 83690; 83735; 84443; 84484; 85007; 85027; 87804; 93005; 96361; 96365; 96366; 96367; 96374; 96375; 99285; C9113; G0378; J0456; J0696; J1885; J1956; J2270; J7030; J7050; Q9967